=== PATIENT | female | born 1990 | race African-American/Black ===

== ENCOUNTER 2024-08-10 18:12 | Emergency (ER) | payer OTHER, MEDICAID ==
[~2024-08-10] VITALS: Ht 170.2 cm; Wt 102.3 kg
[2024-08-10] MEDS ORDERED: IRON18 M1 PO (19:06)
[2024-08-10] MEDS ORDERED: KETOROLAC TROMETHAMINE 60 MG/2 ML VIAL IM ONE (19:45)
[2024-08-10] MEDS ORDERED: diazePAM 10 MG/2 ML SYR IM ONE (19:45)
[2024-08-10] MEDS ORDERED: CYCLOBENZAPRINE10 MG PO (21:25)
[2024-08-10] MEDS ORDERED: methylPREDNISolone 4 MG HOME.PACK PO ONE (21:30)
[2024-08-10] MEDS ORDERED: CYCLOBENZAPRINE HCL 10 MG HOME.PACK PO ONE (21:30)
[2024-08-10 21:51] VITALS: BP 119/71
== END 2024-08-10 21:51 | disposition home or self-care (01) ==
LOC: ED 18:12
DX: S29.012A Strain of muscle and tendon of back wall of thorax, initial encounter (principal); Z79.899 Other long term (current) drug therapy; V69.9XXA Occupant (driver) (passenger) of heavy transport vehicle injured in unspecified traffic accident, initial encounter
CPT/HCPCS: 36415; 72128; 84703; 96372; 99284-25; J1885; J3360

== ENCOUNTER 2024-08-15 15:50 | Emergency (ER) | payer OTHER, MEDICAID ==
[~2024-08-15] VITALS: Ht 170.2 cm; Wt 104.6 kg
[~2024-08-15 15:50] MED LIST: CYCLOBENZAPRINE10 MG PO; IRON18 M1 PO
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
[2024-08-15] MEDS ORDERED: KETOROLAC TROMETHAMINE 60 MG/2 ML VIAL IM ONE (22:15)
[2024-08-15 22:20] LABS: BASOPHILS 0.4 % (0-2); EOSINOPHILS 1.3 % (0-6); HEMATOCRIT 32.7 % (35.0-50.0); HEMOGLOBIN 10.5 g/dL (12.0-18.0); LYMPHOCYTES 21.7 % (24-44); MCH 25.6 (27-36); MCHC 32.1 g/dl (30-36); MCV 79.9 fl (81-99); MONOCYTES 5.3 % (0-12); NEUTROPHILS 71.3 % (39-80); PLATELET COUNT 336 K/uL (140-440); RDW 22.1 (10.5-15.0)
[2024-08-15 22:35] LABS: ALBUMIN 3.3 g/dL (3.4-5.0); ALBUMIN/GLOBULIN RATIO 0.85 (1.1-2.4); ANION GAP 12.7 (7-21); BILIRUBIN, TOTAL 0.1 mg/dL (0.2-1.0); BUN/CREATININE RATIO 24.59 (6.0-28.6); CALCIUM 8.6 mg/dL (8.5-10.1); CREATININE, SERUM 0.61 mg/dL (0.55-1.02); POTASSIUM 3.7 mmol/L (3.5-5.1); PROTEIN, TOTAL 7.2 g/dL (6.4-8.2)
[2024-08-15 23:13] LABS: BILIRUBIN, URINE NEGATIVE (negative); BLOOD/HGB, URINE NEGATIVE (Negative); KETONE, URINE NEGATIVE (Negative); LEUK ESTERASE, URINE NEGATIVE (negative); NITRITE, URINE NEGATIVE (negative)
[2024-08-15] MEDS ORDERED: CYCLOBENZAPRINE HCL 10 MG HOME.PACK PO ONE (23:45)
[2024-08-16 00:07] VITALS: BP 105/64
== END 2024-08-16 00:17 | disposition home or self-care (01) ==
LOC: ED 15:50
PROVIDERS: Internal Medicine
DX: S29.012A Strain of muscle and tendon of back wall of thorax, initial encounter (principal); Z79.899 Other long term (current) drug therapy; V69.9XXA Occupant (driver) (passenger) of heavy transport vehicle injured in unspecified traffic accident, initial encounter
CPT/HCPCS: 36415; 80053; 81003; 85025; 85060; 96372; 99283; J1885